=== PATIENT | female | born 1990 | race Two or more races ===

== ENCOUNTER 2020-03-30 21:46 | Observation (INO) | payer OTHER ==
[~2020-03-30] VITALS: Ht 167.6 cm; Wt 100.7 kg
[2020-03-30] MEDS ORDERED: PREN-96 PO (22:26)
== END 2020-03-30 23:13 | disposition home or self-care (01) | DRG 566 ==
LOC: LDRP 21:46
PROVIDERS: ADMIT Obstetrics & Gynecology; ATTEND Obstetrics & Gynecology
DX: O46.93 Antepartum hemorrhage, unspecified, third trimester (principal); O24.419 Gestational diabetes mellitus in pregnancy, unspecified control; Z3A.36 36 weeks gestation of pregnancy
CPT/HCPCS: 59025; 81002; 82948; 82962; G0378

== ENCOUNTER 2023-04-08 11:03 | Emergency (ER) | payer MEDICAID ==
[~2023-04-08] VITALS: Ht 167.6 cm; Wt 83.8 kg
[~2023-04-08 11:03] MED LIST: PREN-96 PO
[2023-04-08 11:55] LABS: Basophils # (auto) 0 10 ^3/uL (0-0.2); Basophils % (auto) 0.3 % (0.0-2.0); Eosinophils # (auto) 0 10 ^3/uL (0-0.8); Hematocrit 38.2 % (36.0-46.0); Hemoglobin 12.7 g/dL (12.2-16.2); Lymphocytes # (auto) 1.2 10 ^3/uL (0.4-5.4); Lymphocytes % (auto) 7.4 % (10.0-50.0); Mean Corpuscular Hemoglobin 27.6 pg (28.0-32.0); Mean Corpuscular Hgb Conc. 33.4 g/dL (32.0-36.0); Mean Corpuscular Volume 82.8 fL (80.0-100.0); Monocytes # (auto) 0.9 10 ^3/uL (0-1.3); Monocytes % (auto) 5.6 % (0.0-12.0); Neutrophils # (auto) 13.8 10 ^3/uL (1.6-8.6); Neutrophils % (auto) 86.7 % (37.0-80.0); Nucleated Red Blood Cells % 0.2 %; Red Blood Cells 4.61 10^6/uL (4.0-5.20); Red Cell Distribution Width 13.8 % (11.8-14.3); White Blood Cell 15.9 10^3/uL (4.4-10.8)
[2023-04-08 12:15] LABS: Albumin 3.2 g/dL (3.4-5.0); Calcium 8.4 mg/dL (8.5-10.1)
[2023-04-08 12:19] LABS: BUN/Creatinine Ratio 14.7 (10.0-20.0); Bilirubin, Total 0.5 mg/dL (0.2-1.0); Total Protein 7.7 g/dL (6.4-8.2)
[2023-04-08 12:30] LABS: Urine Bacteria MOD /hpf (None Seen); Urine Blood 3+ /uL (Negative); Urine Mucus FEW (None Seen); Urine WBC 4923 /hpf (0 - 5); Urine WBC Clumps PRESENT /hpf (None Seen)
[2023-04-08 12:42] LABS: Urine Specific Gravity 1.025 (1.001-1.035)
[2023-04-08] MEDS ORDERED: traMADol HCL 50 MG TAB PO ONE (14:45)
[2023-04-08] MEDS ORDERED: ONDANSETRON ODT 4 MG TAB PO ONE (14:45)
[2023-04-08 15:43] VITALS: BP 111/72
[2023-04-08] MEDS ORDERED: cefTRIAXone SOD 1,000 MG VL IM ONE (15:45)
[2023-04-08] MEDS ORDERED: CEPH500T PO (16:11)
== END 2023-04-08 16:18 | disposition home or self-care (01) ==
LOC: ER 11:03
DX: N39.0 Urinary tract infection, site not specified (principal); Z79.899 Other long term (current) drug therapy
CPT/HCPCS: 36415; 80053; 81001; 85025; 96372; 99283; J0696; Q0162